=== PATIENT | female | born 1965 | race Two or more races ===

== ENCOUNTER 2020-03-16 06:48 | Day surgery (SDC) | payer BC ==
[2020-03-16] VITALS (8 sets, daily range): BP systolic 90–116; BP diastolic 54–72
[~2020-03-16] VITALS: Ht 165.1 cm; Wt 67.1 kg
[~2020-03-16 06:48] MED LIST: CYCLOBENZAPRINE10 MG ORAL; DEXILANT60 MG ORAL; ESTRACE42.5 GM PV; GLEEVEC400 MG ORAL; LYRICA50 MG ORAL; NYSTATIN-TRIAMC15 G2 TP; PAZEO2.5 ML OP; PROZAC20 MG ORAL; RESTASIS1 EACH BOTH EYES; TRAMADOL HCL50 MG ORAL; VITAMIN D PO
--- NOTE | 2020-03-16 08:11 | Pre-Procedure Note/Attestation ---
Pre-Procedure Note/Attestation Complete Prior to Procedure Planned Procedure: not applicable Procedure Narrative: esophagogastroduodenoscopy and colonoscopy Indications for Procedure Pre-Operative Diagnosis: screening colon, GERD Attestation I attest that I discussed the nature of the procedure; its benefits; risks and complications; and alternatives (and the risks and benefits of such alternatives ), prior to the procedure, with the patient (or the patient's legal business services sales representative). I attest that, if there was a reasonable possibility of needing a blood transfusion, the patient (or the patient's legal business services sales representative) was given the [facility] standardized written summary, pursuant to the Neftali Pentress Blood Safety Act ([place] Health and Safety Code # 1645, as amended). I attest that I re-evaluated the patient just prior to the surgery and that there has been no change in the patient's H&P, except as documented below: Marco A Ferreira MD Mar 16, 2020 08:11
--- NOTE | 2020-03-16 08:12 | Short Stay Surgery H&P ---
History of Present Illness History of Present Illness Chief Complaint screening colon, GERD HPI Sandra Hunt is a 54 year old female who was admitted on for Screening/Gerd Patient History Allergies: Coded Allergies: No Known Allergies (Unverified , 06/07/16) PAST MEDICAL HISTORY: (1) CLL (chronic lymphoid leukemia) in relapse Medication History Scheduled Cyclobenzaprine Hcl* (Flexeril*), 10 MG ORAL NEEDED, (Reported) Cyclosporine (Restasis), 1 DROP BOTH EYES EVERY 12 HOURS, (Reported) Dexlansoprazole (Dexilant), 60 MG ORAL DAILY, (Reported) Estradiol* (Estrace*), 1 APPLIC PV DAILY, (Reported) Fluoxetine Hcl* (Prozac*), 20 MG ORAL DAILY, (Reported) Olopatadine HCl (Pazeo), 2.5 ML OP NEEDED, (Reported) Pregabalin (Lyrica), 50 MG ORAL NEEDED, (Reported) [Vitamin D], 50,000 UNITS PO ONCE A WEEK, (Reported) Scheduled PRN Tramadol Hcl* (Ultram*), 50 MG ORAL Q6H PRN for For Pain, (Reported) Miscellaneous Medications Nystatin/Triamcin (Nystatin-Triamcinolone Cream), 15 GM TP, (Reported) Discontinued Medications Imatinib Mesylate (Gleevec), 400 MG ORAL DAILY, (Reported) Discontinued Reason: Pt stopped taking med Review of Systems Cardiovascular: Reports: no symptoms Respiratory: Reports: no symptoms Skeletal: Reports: no symptoms Gastrointestinal: Reports: gastro esophageal reflux disease Genitourinary: Reports: no symptoms Neurologic: Reports: no symptoms Hematologic: Reports: see HPI Physical Exam Vital Signs Last Vital Signs Date Time Temp Pulse Resp B/P (MAP) Pulse Ox O2 Delivery O2 Flow Rate FiO2 03/16/20 07:13 Room Air 03/16/20 07:09 97.0 63 18 116/72 98 Skin: normal HENT: normal Heart: normal Lungs: normal Abdomen: normal Extremities: normal Plan Plan of Care esophagogastroduodenoscopy and colonoscopy Attestation Are the patient's medical conditions optimized for surgery? Attestation Response: yes Marco A Ferreira MD Mar 16, 2020 08:12
--- NOTE | 2020-03-16 09:55 | Immediate Post-Op Evaluation ---
Immediate Post-Op Evalulation Immediate Post-Op Evalulation Procedure: EGD/Colonoscopy Date of Evaluation: Mar 16, 2020 Time of Evaluation: 09:55 IV Fluids: 500 Blood Pressure Systolic: 90 Blood Pressure Diastolic: 40 Pulse Rate: 60 Respiratory Rate: 14 O2 Sat by Pulse Oximetry: 99 Temperature (Fahrenheit): 98.0 Nausea: No Vomiting: No Patient Status: awake, reacts, patent Hydration Status: adequate Drug: none Samantha Mckinney CRNA Mar 16, 2020 09:55
--- NOTE | 2020-03-16 09:57 | Endoscopy Procedure Note ---
Endoscopy Procedure Note General Indication for Procedure: screening colon, GERD Procedures Performed: EGD, colonoscopy Operative Findings/Diagnosis: gastritis, hemorrhois Specimen: yes Pt Tolerated Procedure Well: Yes Estimated Blood Loss: none Anesthesia Anesthesiologist: shira Anesthesia: MAC Inserted Devices Implant(s) used?: No Quality Quality of Bowel Preparation: Fair Did scope reach the cecum?: Yes Was there any complications?: No GI Core Measures 50 yrs or older w/o bx or poly: No 10yrs. F/U recommended: Yes If not recommended, why?: Above average risk 18 years or older w/prev. colo: Yes <3yrs. since last colonoscopy: No Marco A Ferreira MD Mar 16, 2020 09:57
--- NOTE | 2020-03-16 09:57 | Anethesia Preoperative Eval ---
Anesthesia Pre-op PMH/ROS General Date of Evaluation: Mar 16, 2020 Time of Evaluation: 09:15 Anesthesiologist: norma ASA Score: ASA 2 Mallampati Score Class I : Soft palate, uvula, fauces, pillars visible Class II: Soft palate, uvula, fauces visible Class III: Soft palate, base of uvula visible Class IV: Only hard plate visible Mallampati Classification: Class II Surgeon: lucy Diagnosis: GERD; screening Surgical Procedure: EGD/ Colonoscopy Anesthesia History: none Allergies: Coded Allergies: No Known Allergies (Unverified , 06/07/16) Medications: see eMAR Patient NPO?: Yes NPO Date: Mar 16, 2020 NPO Time: 00:01 Past Medical History Cardiovascular: Denies: HTN, CAD, NE, valve dz, arrhythmia, other Pulmonary: Denies: asthma, COPD, ELSI, other Gastrointestinal/Genitourinary: Reports: GERD; Denies: CRI, ESRD, other Neurologic/Psychiatric: Reports: depression/anxiety; Denies: dementia, CVA, TIA, other Endocrine: Denies: DM, hypothyroidism, steroids, other HEENT: Denies: cataract (L), cataract (R), glaucoma, [place] (L), [place] (R), other Hematology/Immune: Denies: anemia, DVT, bleeding disorder, other Musculoskeletal/Integumentary: Denies: OA, RA, DJD, DDD, edema, other Other: other - CLL Anesthesia Pre-op Phys. Exam Physician Exam Last Vital Signs Date Time Temp Pulse Resp B/P (MAP) Pulse Ox O2 Delivery O2 Flow Rate FiO2 03/16/20 07:13 Room Air 03/16/20 07:09 97.0 63 18 116/72 98 Constitutional: NAD Neurologic: CN 2-12 intact Cardiovascular: RRR Respiratory: CTA Gastrointestinal: S/NT/ND Airway Exam Mallampati Classification 2 Mallampati Score: Class II MO: full ROM: full Dentures: no upper, no lower Anesthesia Pre-op A/P Studies Pre-op Studies: EKG - SR Risk Assessment & Plan Assessment: covid neg Plan: mac Status Change Before Surgery: No Pre-Antibiotics Drug: none Samantha Mckinney CRNA Mar 16, 2020 09:57
--- NOTE | 2020-03-16 10:30 | 48 Hour Post Anesthesia Eval ---
Post Anesthesia Evaluation Procedure: EGD/Colonoscopy Date of Evaluation: Mar 16, 2020 Time of Evaluation: 10:29 Blood Pressure Systolic: 105 0: 63 Pulse Rate: 54 Respiratory Rate: 14 O2 Sat by Pulse Oximetry: 98 Airway: patent Nausea: No Vomiting: No Hydration Status: adequate Cardiopulmonary Status: stable Mental Status/LOC: patient returned to baseline Follow-up Care/Observations: na Post-Anesthesia Complications: none Follow-up care needed: N/A Samantha Mckinney CRNA Mar 16, 2020 10:30
--- NOTE | 2020-03-16 13:15 | Procedure Note ---
DATE OF PROCEDURE: 03/16/2020 SURGEON: Marco A Ferreira MD. PROCEDURE: Upper endoscopy biopsy and colonoscopy. ANESTHESIA: Per PULPER, Samantha Tarrillion. INSTRUMENT: Olympus adult flexible upper endoscope and colonoscope. INDICATIONS: Screening colonoscopy evaluation, dysphagia, chronic GERD. REASON FOR PROCEDURE: The procedure, risks, benefits, and possible consequences, including hemorrhage, aspiration, perforation and infection, and alternative treatments, were explained to the patient/legal guardian by Dr. Marco A Ferreira and the patient/legal guardian understood and accepted these risks. PROCEDURE IN DETAIL: After informed consent was obtained and the patient was adequately sedated, Olympus upper endoscope was advanced from mouth into second portion of the duodenum and retroflexion was performed in the stomach The patient had evidence of diffuse gastritis. Random biopsy from antrum was obtained to rule out H. pylori infection. Also the patient one small gastric polyp, possibly finding were polyp which was biopsied. The patient had a two small inlet patches in the upper esophagus. At this time, the upper endoscope was retrieved and the patient was turned over for colonoscopy. First, rectal examination was performed which was positive for internal hemorrhoids. Then, the scope was advanced from rectum into the cecum, documented by appendix orifice, ileocecal valve, and right upper quadrant palpation. Quality of prep was fair. There was a lot of thick greenish fluid throughout the colon, especially in the right colon making examination of the right colon limited. I would say about 10, about 15% of right colon was not fully examined given this prep. There was no evidence of any mass, polyp, or diverticulosis or any other pathology seen. Retroflexion of rectum showed evidence of small internal hemorrhoids. SUMMARY OF FINDINGS: 1. Two small inlet patches in the esophagus. 2. One small gastric polyp removed. See above for details. 3. Gastritis, status post biopsy. 4. Internal hemorrhoids. 5. Fair colonic prep. 6. Internal hemorrhoids. RECOMMENDATIONS: Follow up biopsy results and treat accordingly. Marco A Ferreira M.D. DR: JARAD JOB#: [id number] CC:
== END 2020-03-16 11:00 | disposition home or self-care (01) ==
LOC: GAS 06:48
DX: Z12.11 Encounter for screening for malignant neoplasm of colon (principal); R13.10 Dysphagia, unspecified; K21.9 Gastro-esophageal reflux disease without esophagitis; K29.70 Gastritis, unspecified, without bleeding; K31.7 Polyp of stomach and duodenum; K64.8 Other hemorrhoids; Z79.899 Other long term (current) drug therapy; Z85.6 Personal history of leukemia; F32.9 Major depressive disorder, single episode, unspecified; F41.9 Anxiety disorder, unspecified
CPT/HCPCS: 43239; 45378; 93005; 94003; U0002; 94150